=== PATIENT | female | born 1995 ===

== ENCOUNTER 2021-09-26 04:44 | Emergency (ER) | payer MEDICAID, OTHER ==
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
[2021-09-26 08:22] LABS: Basophils # (Auto) 0.1 K/mm3 (0.0-0.1); Basophils % (Auto) 0.6 % (0.0-1.8); Eosinophils # (Auto) 0.4 K/mm3 (0.0-0.4); Eosinophils % (Auto) 3.7 % (0.0-4.3); Hemoglobin 13.4 gm/dl (10.1-14.3); Lymphocytes # (Auto) 2.4 K/mm3 (1.2-5.4); Lymphocytes % (Auto) 23.7 % (13.4-35.0); Mean Corpuscular HGB Conc 34 % (30-34); Mean Corpuscular Volume 94 fl (79-97); Monocytes # (Auto) 0.6 K/mm3 (0.0-0.8); Monocytes % (Auto) 5.7 % (0.0-7.3); Platelet Count 359 K/mm3 (140-440); Red Blood Count 4.28 M/mm3 (3.65-5.03); Red Cell Distribution Width 12.1 % (13.2-15.2)
[2021-09-26 08:30] LABS: Blood Urea Nitrogen 9 mg/dL (7-17); Calcium 9.5 mg/dL (8.4-10.2); Hemolysis Index 6
[2021-09-26 08:34] LABS: BUN/Creatinine Ratio 13
[2021-09-26 10:24] LABS: Bilirubin,Urine NEG (Negative); Blood,Urine MOD (Negative); Color,Urine Amber (Yellow)
[2021-09-26 10:26] LABS: RBC,Urine < 1.0 /HPF (0.0-6.0); WBC,Urine < 1.0 /HPF (0.0-6.0)
[2021-09-26 10:32] LABS: Amphetamine Screen,Urine Negative; Benzodiazepines Screen,Urine Negative; Cocaine Screen,Urine Negative; Methadone Screen,Urine Negative; Opiate Screen,Urine Negative
[2021-09-26 11:02] LABS: Cannabinoid Screen,Urine Positive
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
[2021-09-27 03:59] VITALS: BP 98/65
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
== END 2021-09-27 07:30 ==
LOC: ED 04:44
DX: R45.851 Suicidal ideations (principal); Z20.822 Contact with and (suspected) exposure to COVID-19; F17.200 Nicotine dependence, unspecified, uncomplicated; F12.90 Cannabis use, unspecified, uncomplicated; F20.9 Schizophrenia, unspecified
CPT/HCPCS: 36415; 80048; 80307; 81001; 84703; 85025; 99285; U0003; 80320; G0480